=== PATIENT | female | born 2000 | race Caucasian/White ===

== ENCOUNTER 2024-04-17 21:25 | Emergency (ER) | payer OTHER, BC ==
[2024-04-17] MEDS: cefTRIAXone 1 GM, Lidocaine 1% 2.1 ML IM ONE (22:20)
[2024-04-17] MEDS: Acetaminophen 325 MG Tab PO ONE (22:29)
== END 2024-04-17 22:32 | disposition home or self-care (01) ==
LOC: DL.ED 21:25
DX: S01.81XA Laceration without foreign body of other part of head, initial encounter (principal); S09.90XA Unspecified injury of head, initial encounter; W50.1XXA Accidental kick by another person, initial encounter
CPT/HCPCS: 12002; 70450; 72125; 96372; 99282; 99283; J0696; J3490

== ENCOUNTER 2024-05-23 20:55 | Emergency (ER) | payer OTHER, BC ==
[2024-05-23] MEDS: Acetaminophen/HYDROcodone 325-5 MG Tab PO ONE (22:10)
[2024-05-23] MEDS ORDERED: Naloxone 2 MG/2 ML Syringe IVPUSH PRN (23:07)
[2024-05-23] MEDS: Morphine 2 MG/ML SYRINGE IM ONE (23:10)
[2024-05-23] MEDS: Ondansetron 4 MG Tab.DIS PO ONE (23:11)
== END 2024-05-24 01:04 | disposition home or self-care (01) ==
LOC: DL.ED 20:55
DX: S82.832A Other fracture of upper and lower end of left fibula, initial encounter for closed fracture (principal); Z86.16 Personal history of COVID-19; X50.1XXA Overexertion from prolonged static or awkward postures, initial encounter
CPT/HCPCS: 73610; 96372; 99283; A9270; J2270